=== PATIENT | female | born 1955 | race African-American/Black ===

== ENCOUNTER 2018-07-27 20:00 | Inpatient (IN) | payer MEDICARE ==
[~2018-07-27] VITALS: Ht 152.4 cm; Wt 103.4 kg
[2018-07-27 20:00] VITALS: BP 175/93
[2018-07-27 22:44] VITALS: BMI 44.6
--- NOTE | 2018-07-28 01:05 | NUR ---
PATIENT ADMITTED AT 2100 TO ROOM 1114A WITH DX OF BILATERAL WRISTS FRACTURES WITH REPAIR FOR PHYSICAL REHAB AND SERVICES OF DR ROSALES. AWAKE AND ALERT. RESPIRATIONS UNLABORED. BILATERAL LOWER ARMS WRAPPED IN SOFT CASTING WITH NOTED HARDWARE IN RIGHT ARM. SLIGHT EDEMA NOTED TO FINGERS IN RIGHT HAND BUT IS ABLE TO MOVE FINGERS ON COMMAND ON BOTH HANDS. SEE ADMISSION ASSESSMENT AND HISTORY. ASSISTED TO BATHROOM AND GAIT IS STEADY BUT MOBILITY SLIGHTLY LIMITED DUE TO NOT BEING ABLE TO USE HANDS. MEDICATED FOR PAIN EARLIER AND IS CURRENTLY RESTING. CONTINENT OF BOWEL AND BLADDER. CALL LIGHT IN REACH.
--- NOTE | 2018-07-28 01:54 | NUR ---
RESTING IN BED WITH EYES CLOSED AND RESPIRATIONS UNLABORED. NO DISTRESS NOTED.
[2018-07-28 06:02] LABS: BASOPHILS 0.2 % (0-2); EOSINOPHILS 0.8 % (0-7); HEMATOCRIT 36.7 % (36.0-48.0); HEMOGLOBIN 11.5 g/dL (12-16); IMMATURE GRANULOCYTES 0.2 % (0-5); LYMPHOCYTES 24.2 % (15-50); MCH 26.6 pg (26.0-34.0); MCHC 31.3 g/dL (31.0-37.0); MONOCYTES 7.6 % (2-11); PLATELET COUNT 193 10x3/uL (130-400); RBC 4.32 10x6/uL (4.00-5.40); RDW 14.2 % (11.5-14.5)
[2018-07-28 06:11] LABS: ANION GAP 10.9 mmol/L (8-16); CALCIUM 8.3 mg/dL (8.5-10.1); CARBON DIOXIDE 32.2 mmol/L (21.0-32.0); CREATININE - SERUM 0.9 mg/dL (0.6-1.3); POTASSIUM - SERUM 4.1 mmol/L (3.5-5.1)
[2018-07-28 07:29] VITALS: BP 187/82
--- NOTE | 2018-07-28 09:42 | NUR ---
IN THERAPY. BUE ARE IN IN CASTS FROM UPPER FOREARM TO KNUCKLES. DENIES INCREASED PAIN WHEN ARMS ARE AT REST. MAX ASST WITH ALL TASKS AND ADL'S REQUIRED. SHE IS NOT ABLE TO BEND ARM. EXTERNAL HARDWARE NOTED TO ANTONINA.
[2018-07-28 11:31] VITALS: Ht 152.4 cm; Wt 103.4 kg
--- NOTE | 2018-07-28 11:49 | NUR ---
SITTING IN CHAIR IN ROOM RESTING WITH EYES CLOSED. CALL LIGHT IN REACH
--- NOTE | 2018-07-28 17:49 | NUR ---
SITTING UP IN CHAIR IN ROOM VISITING WITH FRIENDS. DENIES NEEDS OR INCREASED PAIN TO BUE. CALL LIGHT IN REACH
[2018-07-28 19:04] VITALS: BP 182/90
--- NOTE | 2018-07-28 19:08 | NUR ---
AWAKE AND ALERT. SITTING IN CHAIR. ASSISTED TO BATHROOM. C/O NO BM X 3 DAYS. WILL TREAT WITH HS MEDICATIONS. DRESSINGS/HARDWARE INTACT TO BILATERAL WRISTS/LOWER ARMS. MILD EDEMA NOTED IN RIGHT HAND/FINGERS. ABLE TO MOVE FINGERS ON BOTH HANDS ON COMMAND AND SKIN IS WARM TO TOUCH. ASSISTED BACK TO CHAIR AFTER VOIDING. GAIT STEADY. CALL LIGHT IN REACH.
--- NOTE | 2018-07-29 01:54 | NUR ---
ASSISTED TO BATHROOM AND BACK TO BED. STILL NO BM. VOMITED EARLIER IN SHIFT 500CC. NO FURTHER VOMITING. RESTING WITH NO DISTRESS NOTED.
--- NOTE | 2018-07-29 05:26 | NUR ---
RESTING IN BED. RESPIRATIONS UNLABORED. NO CHANGES IN CONDITION THIS SHIFT. NO DISTRESS NOTED. CALL LIGHT IN REACH.
--- NOTE | 2018-07-29 07:15 | NUR ---
LAYING IN BED WITH BOTH JOLIE ELEVATED ON PILLOWS. EYES CLOSED. NO S/S DISTRESS. CALL LIGHT IN REACH
[2018-07-29 08:39] VITALS: BP 191/93
--- NOTE | 2018-07-29 10:43 | NUR ---
SITTING IN CHAIR IN ROOM. BOTH ARMS PROPED UP ON SEVERAL PILLOWS. DENIES NEEDS OR C/O. CALL LIGHT IN REACH
--- NOTE | 2018-07-29 14:11 | NUR ---
C/O INCREASED SOB. SHE DESATS TO HIGH 80'S WHILE TALKING. SHE CAN SPEAK 19 WORDS PER MINUTE ON 3LNC. WHEN SHE STOPS TALKING HER SATS COME BACK UP. RESPIRATORY NOTIFIED AND THEY GAVE ALBUTERAL MDI X2 PUFFS AND PUT HER ON HER OWN TRILOGY CPAP MACHINE. SHE DENIED CONTINUED SOB AND HER SATS INCREASED TO 99%. CALL LIGHT IN REACH. SHE IS RESTING QUIETLY IN BED WITH CPAP ON AND IS READING A BOOK.
[2018-07-29 17:52] LABS: PROTEIN - URINE 53.5 mg/dL (0.0-11.9)
[2018-07-29 17:54] LABS: CREATININE - URINE 292.1 mg/dL (30-125); PRO/CRE RATIO URINE 0.2 mg/g
[2018-07-29 18:07] LABS: APPEARANCE CLEAR (CLEAR); BILIRUBIN 1+ (NEGATIVE); COLOR YELLOW (YELLOW); GLUCOSE 50 mg/dL (NEGATIVE); KETONE SMALL mg/dL (NEGATIVE); NITRITE NEGATIVE (NEGATIVE); PROTEIN 1+ mg/dL (NEGATIVE); UROBILINOGEN NORMAL (NORMAL)
[2018-07-29 18:08] LABS: BACTERIA MODERATE /hpf (NONE SEEN); HYALINE CAST 0-5 /lpf (NONE SEEN); RED CELLS - URINE 0-5 /hpf (0-5); WHITE CELLS - URINE 0-5 /hpf (0-5)
[2018-07-29 18:54] VITALS: BP 152/86
--- NOTE | 2018-07-29 19:15 | NUR ---
PT SITTING IN WC IN HER ROOM. ALERT AND ORIENTED X 3. DENIES ACUTE DISCOMFORT AT THIS TIME. PT ASSISTED TO THE BATHROOM WITH MIN ASSIST FOR TRANSFERS, MOD ASSIST WITH TOILETING. DRESSINGS TO YVONNE WRISTS ARE CDI. EXTERNAL FIXATORS TO RIGHT ARM ARE INTACT. RIGHT ARM IS RESERVED FOR HISTORY OF A MASTECTOMY. PT IS VERY FRIENDLY AND COOPERATIVE. SR'S ARE UP X 3 WHILE IN BED. CALL LIGHT AND BEDSIDE TABLE ARE WITHIN EASY REACH.
--- NOTE | 2018-07-29 21:47 | NUR ---
PT IS RESTING IN BED WITH EYES OPEN. NO NEEDS VOICED.
--- NOTE | 2018-07-30 01:28 | NUR ---
PT ASSISTED TO THE BATHROOM WITH MOD ASSIST.
--- NOTE | 2018-07-30 02:25 | NUR ---
I have reviewed this patient and I concur with the Shift Assessment completed by the Licensed Practical Nurse today this shift.
--- NOTE | 2018-07-30 06:23 | NUR ---
PT RESTING IN BED WITH EYES OPEN. ASSISTED TO THE BATHROOM WITH MOD ASSIST. NO FURTHER NEEDS VOICED AT THIS TIME.
[2018-07-30 06:38] LABS: BASOPHILS 0.2 % (0-2); EOSINOPHILS 1.4 % (0-7); HEMATOCRIT 35.3 % (36.0-48.0); HEMOGLOBIN 10.9 g/dL (12-16); IMMATURE GRANULOCYTES 0.2 % (0-5); LYMPHOCYTES 37.7 % (15-50); MCH 26.3 pg (26.0-34.0); MCHC 30.9 g/dL (31.0-37.0); MCV 85.1 fL (80.0-100.0); MEAN PLATELET VOLUME 9.4 fL (7.4-10.4); NEUTROPHILS 53.5 % (40-80); PLATELET COUNT 183 10x3/uL (130-400); RBC 4.15 10x6/uL (4.00-5.40); RDW 14.3 % (11.5-14.5)
[2018-07-30 07:06] LABS: CALC OSMOLALITY 278 mosm/kg (275-300); CARBON DIOXIDE 31.9 mmol/L (21.0-32.0); CHLORIDE - SERUM 99 mmol/L (98-107); CREATININE - SERUM 0.8 mg/dL (0.6-1.3); GLUCOSE 251 mg/dL (74-106); POTASSIUM - SERUM 4.3 mmol/L (3.5-5.1); SODIUM 135 mmol/L (136-145); THYROID STIMULATING HORMONE 1.33 uIU/mL (0.36-3.74); UREA NITROGEN 16 mg/dL (7-18); eGFR NON AFRICAN AMERICAN 76 mL/min (90-120)
[2018-07-30 08:01] VITALS: BP 162/73
--- NOTE | 2018-07-30 12:15 | NUR ---
SITTING IN WC IN ROOM EATING LUNCH. APPETITE POOR. CALL LIGHT IN REACH
--- NOTE | 2018-07-30 15:27 | NUR ---
STILL HAVING SOME N/V WITH BROWN COLORED EMESIS. APPETITE IS POOR. BUE STILL ELEVATED ON PILLOWS. CALL LIGHT IN REACH
--- NOTE | 2018-07-30 17:44 | NUR ---
N/V IMPROVED AFTER ZOFRAN. DENIES NEEDS. ATE A LITTLE BIT OF SUPPER. CALL LIGHT IN REACH
[2018-07-30 19:00] VITALS: BP 222/98
--- NOTE | 2018-07-30 19:11 | NUR ---
AWAKE, DOZING AT INTERVALS. STATES SHE FEELS A LITTLE BETTER NOW. RESPIRATIONS UNLABORED. NO ACUTE DISTRESS NOTED. BP ELEVATED AFTER VOMITING. WILL RECHECK WITH HS MEDICATIONS. NO C/O PAIN. CALL LIGHT IN REACH.
[2018-07-31 00:06] VITALS: BP 167/87
--- NOTE | 2018-07-31 00:07 | NUR ---
RESTING QUIETLY. BLOOD PRESSURE NOW 167/87. NO DISTRESS NOTED.
--- NOTE | 2018-07-31 02:29 | NUR ---
SLEEPING WITH RESPIRATIONS UNLABORED. NO DISTRESS NOTED. CALL LIGHT IN REACH,
--- NOTE | 2018-07-31 05:13 | NUR ---
QUIET HOURS. NO CHANGES IN CONDITION THIS SHIFT. NO VOMITING THIS SHIFT. RESTING IN BED WITH NO DISTRESS NOTED.
[2018-07-31 07:34] VITALS: BP 183/95
--- NOTE | 2018-07-31 08:00 | NUR ---
SHIFT ASSMT COMPLETED.DENIES NEEDS.BREAKFAST GIVEN.ASSISTED WITH MEALS.CL IN REACH.
--- NOTE | 2018-07-31 12:20 | NUR ---
PATIENT ADMITTED TO REHAB FROM AN OUTSIDE FACILITY. DISCHARGE PLANS ARE FOR HER TO RETURN HOME. WILL CONTINUE TO FOLLOW WITH PATIENT.
--- NOTE | 2018-07-31 13:04 | NUR ---
Nutrition Follow Up: Pt was in therapy at the time of RD visit. Interview deferred at this time. Diet: ADA PO intake: 51% meal avg BM: 07/29/18 Labs reviewed - Glucose elevated Meds noted Rec continue ADA diet. Will continue to honor food preferences. RD following.
[2018-07-31 19:00] VITALS: BP 165/78
--- NOTE | 2018-07-31 19:58 | NUR ---
AWAKE AND ALERT. RESTING IN BED. DRESSINGS AND CAST INTACT TO BILATERAL ARMS. C/O INDIGESTION. TREATED WITH MYLANTA PRN. NO DISTRESS NOTED. CALL LIGHT IN REACH.
--- NOTE | 2018-08-01 03:29 | NUR ---
RESTING IN BED WITH RESPIRATIONS UNLABORED. NO DISTRESS NOTED. CALL LIGHT IN REACH.
--- NOTE | 2018-08-01 05:11 | NUR ---
QUIET HOURS. ASSISTED UP TO BATHROOM AND BACK TO BED. NO DISTRESS NOTED. NO CHANGE IN CONDITION THIS SHIFT.
--- NOTE | 2018-08-01 08:00 | NUR ---
SHIFT ASSMT COMPLETED.BREAKFAST GIVEN.INSTANT POTATO PROCESSOR TO FEED.CL IN REACH.
[2018-08-01 08:35] LABS: BASOPHILS 0.4 % (0-2); EOSINOPHILS 1.7 % (0-7); HEMATOCRIT 37.9 % (36.0-48.0); HEMOGLOBIN 11.9 g/dL (12-16); MCH 26.5 pg (26.0-34.0); MCHC 31.4 g/dL (31.0-37.0); MCV 84.4 fL (80.0-100.0); MEAN PLATELET VOLUME 9.2 fL (7.4-10.4); MONOCYTES 7.3 % (2-11); NEUTROPHILS 59.6 % (40-80); RBC 4.49 10x6/uL (4.00-5.40); RDW 13.8 % (11.5-14.5); WBC 4.8 10x3/uL (4.8-10.8)
[2018-08-01 08:36] VITALS: BP 188/82
[2018-08-01 08:37] LABS: PLATELET COUNT 141 10x3/uL (130-400)
[2018-08-01 08:47] LABS: ANION GAP 9.6 mmol/L (8-16); CALCIUM 9.3 mg/dL (8.5-10.1); CREATININE - SERUM 0.9 mg/dL (0.6-1.3); POTASSIUM - SERUM 4.6 mmol/L (3.5-5.1)
--- NOTE | 2018-08-01 12:00 | NUR ---
SITTING UP IN WC.
--- NOTE | 2018-08-01 13:52 | NUR ---
CARE TEAM MEETING: PATIENT IS PROGRESSING IN THERAPY. TENATIVE DISCHARGE DATE IS 08/08/18. WILL CONTINUE TO FOLLOW WITH PATIENT.
[2018-08-01 14:20] VITALS: BP 174/96
--- NOTE | 2018-08-01 16:00 | NUR ---
SITTING UP IN WC.
[2018-08-01 19:00] VITALS: BP 168/74
--- NOTE | 2018-08-01 23:48 | NUR ---
PT UP TO TOILET, BUE CASTED, HELP WITH CLOTHING AND EATING NOTED, DRSG CHANGE COMPLETED PER ORDERS, FLUIDS AND CALL LIGHT WITHIN REACH
[2018-08-02 00:25] VITALS: BP 178/86
--- NOTE | 2018-08-02 04:50 | NUR ---
PT IN BED LOW POSITION, EYES CLOSED, AROUSES EASILY TO VOICE, FLUIDS AND CALL LIGHT WITHIN REACH, NO NEEDS NOTED
[2018-08-02 06:25] VITALS: BP 178/86
--- NOTE | 2018-08-02 08:15 | NUR ---
PT RESTING IN BED WITH EYES OPEN CALL LIGHT IN REACH NO PROBLEMS WILL MONITER
[2018-08-02 11:24] VITALS: BP 153/82
[2018-08-02 12:11] LABS: CAT - DOPAMINE 34 pg/mL (0-48); CAT - EPINEPHRINE <15 pg/mL (0-62); CAT - NOREPINEPHRINE 277 pg/mL (0-874)
[2018-08-02 16:08] LABS: RENIN ACTIVITY - PLASMA 1.868 ng/mL/hr (0.167-5.380)
--- NOTE | 2018-08-02 18:42 | NUR ---
PT UP IN WHEELCHAIR IN ROOM CALL LIGHT IN REACH WILL MONITER
[2018-08-02 18:58] VITALS: BP 137/75
[2018-08-02 19:08] LABS: META PL - METANEPHRINE 13 pg/mL (0-62); META PL - NORMETANEPHRINE 48 pg/mL (0-145)
--- NOTE | 2018-08-02 19:36 | NUR ---
PATIENT RECEIVED SITTING UP IN WHEELCHAIR AT BEDSIDE. PATIENT ASSESSMENT DONE. NO SIGNS OF PAIN OR DISTRESS. CALL LIGHT WITHIN REACH. WILL CONTINUE TO MONITOR.
[2018-08-02 19:48] VITALS: BP 137/75
--- NOTE | 2018-08-03 00:28 | NUR ---
I have reviewed this patient and I concur with the Shift Assessment completed by the Licensed Practical Nurse today this shift.
--- NOTE | 2018-08-03 00:47 | NUR ---
PATIENT C/O PAIN TO RIGHT WRIST. PATIENT GIVEN PAIN MEDICATION FOR PAIN LEVEL 8. PATIENT MADE COMFORTABLE. CALL LIGHT WITHIN REACH. BED LOW. WILL CONTINUE TO MONITOR.
[2018-08-03 00:58] VITALS: BP 152/83
[2018-08-03 04:09] LABS: ALDOSTERONE 2.2 ng/dL (0.0-30.0)
[2018-08-03 06:24] VITALS: BP 151/80
[2018-08-03 11:53] VITALS: BP 153/91
--- NOTE | 2018-08-03 18:15 | NUR ---
PT RESTING IN BED WITH EYES OPEN CALL LIGHT IN REACH NO PROBLEMS WILL MONITER
--- NOTE | 2018-08-03 19:08 | NUR ---
PATIENT IS RESTING IN HER BED. SHE HAS FAMILY VISITING WITH HER AND SHE DENIES ANY NEEDS. BED IS DOWN LOW WITH SIDE RAILS UP X2, CALL LIGHT IN REACH.
[2018-08-03 23:56] VITALS: BP 153/77
--- NOTE | 2018-08-04 00:04 | NUR ---
PATIENT IS SLEEPING. BED IS DOWN LOW WITH SIDE RAILS UP X2 AND CALL LIGHT IN REACH.
--- NOTE | 2018-08-04 04:05 | NUR ---
PATIENT IS SLEEPING. BED IS DOWN LOW WITH SIDE RAILS UP X2. CALL LIGHT IS IN REACH.
[2018-08-04 06:29] VITALS: BP 156/72
[2018-08-04 08:00] VITALS: BP 167/80
--- NOTE | 2018-08-04 08:00 | NUR ---
PATIENT IS ALERT/ORIENT. CALL LIGHT WITHIN REACH. VOICES NO NEEDS AT THIS TIME. WILL CONTINUE WITH PLAN OF CARE
--- NOTE | 2018-08-04 08:40 | NUR ---
PRN MYLANTA GIVEN FOR UPSET STOMACHE. PATIENT REQUEST I HOLD OFF ON HER AM MEDICATIONS FOR NOW
--- NOTE | 2018-08-04 11:10 | NUR ---
PATIENT HELPED TO BATHROOM. WALKS WITH STANDBY ASST. PATIENT NEEDS HELP WITH N[facility] AND PULLING UP PANTS DUE TO BILATER WRIST FRACTURES
--- NOTE | 2018-08-04 14:09 | NUR ---
UP IN WC.DENIES NEEDS.
--- NOTE | 2018-08-04 14:18 | NUR ---
PATIENT HELPED WITH SHOWER BY THIS NURSE. PATIENT UNABLE TO WASH OR DRY SELF DUE TO BILATERAL WRIST FRACTURES. TOTAL ASST WITH SHOWER. LINENS ON BED CHANGED
--- NOTE | 2018-08-04 18:24 | NUR ---
PATIENT SITTING UP ON THE SIDE OF THE BED TO EAT SUPPER. ABLE TO FEED SELF WITH SPECIAL UTINSILS
[2018-08-04 19:42] VITALS: BP 144/97
--- NOTE | 2018-08-04 19:43 | NUR ---
AWAKE AND ALERT. SITTING ON SIDE OF BED. RESPIRATIONS UNLABORED. DRESSINGS/CAST INTACT TO BILATERAL ARMS/WRISTS. MEDICATED FOR C/O INDIGESTION. CALL LIGHT IN REACH.
--- NOTE | 2018-08-05 01:42 | NUR ---
CONTINUES RESTING IN BED WITH NO DISTRESS NOTED. CALL LIGHT IN REACH.
--- NOTE | 2018-08-05 05:00 | NUR ---
QUIET HOURS. RESTING IN BED WITH NO DISTRESS NOTED. CALL LIGHT IN REACH.
--- NOTE | 2018-08-05 08:45 | NUR ---
ADMININSTERED MORNING MEDS WHOLE WITHOUT DIFFICULTY. DENIES ANY NEEDS OR PAIN. RR EVEN AND UNLABORED. A&O X4. CALL LIGHT WITHIN REACH, FALL PRECAUTIONS IN PLACE
[2018-08-05 09:00] VITALS: BP 144/70
--- NOTE | 2018-08-05 13:04 | NUR ---
ASSISTED TO RESTROOM WITH STAND BY ASSIST.
--- NOTE | 2018-08-05 15:26 | NUR ---
SLEEPING IN BED AT THIS TIME. WILL CONTINUE TO MONITOR. CALL LIGHT WITHIN REACH.
--- NOTE | 2018-08-05 19:22 | NUR ---
AWAKE AND ALERT. RESTING IN BED WITH RESPIRATIONS UNLABORED AND NO DISTRESS NOTED. DRESSINGS INTACT TO BILATERAL WRIST AREAS WITH PINS INTACT TO LOWER RIGHT ARM. CALL LIGHT IN REACH.
[2018-08-05 20:00] VITALS: BP 134/67
--- NOTE | 2018-08-06 02:40 | NUR ---
CONTINUES RESTING IN BED WITH RESPIRATIONS UNLABORED. NO DISTRESS NOTED. CALL LIGHT IN REACH.
--- NOTE | 2018-08-06 06:01 | NUR ---
QUIET HOURS. NO CHANGES IN CONDITION THIS SHIFT. NO DISTRESS NOTED.
[2018-08-06 07:06] LABS: BASOPHILS 0.2 % (0-2); EOSINOPHILS 1.4 % (0-7); HEMOGLOBIN 11.9 g/dL (12-16); IMMATURE GRANULOCYTES 0.2 % (0-5); LYMPHOCYTES 38.6 % (15-50); MCH 26.9 pg (26.0-34.0); MCHC 32.2 g/dL (31.0-37.0); MCV 83.5 fL (80.0-100.0); MEAN PLATELET VOLUME 9.1 fL (7.4-10.4); MONOCYTES 6.8 % (2-11); NEUTROPHILS 52.8 % (40-80); PLATELET COUNT 160 10x3/uL (130-400); RBC 4.43 10x6/uL (4.00-5.40); RDW 13.7 % (11.5-14.5); WBC 5.2 10x3/uL (4.8-10.8)
[2018-08-06 07:13] LABS: ANION GAP 8.9 mmol/L (8-16); CALCIUM 9.8 mg/dL (8.5-10.1); CARBON DIOXIDE 32.4 mmol/L (21.0-32.0); CREATININE - SERUM 1.2 mg/dL (0.6-1.3); POTASSIUM - SERUM 4.3 mmol/L (3.5-5.1)
[2018-08-06 07:55] VITALS: BP 141/80
--- NOTE | 2018-08-06 09:57 | NUR ---
PATIENT COMPLAINED OF PAIN TO WRIST THIS MORNING. MEDICATED WITH PRN NORCO 5 WITH GOOD RESULTS. ATE 75% OF BREAKFAST. HAD LARGE EMESIS AFTER BREAKFAST. GI CONSULT OBTAINED. UP FOR THERAPY AT THIS TIME. WILL CONTINUE TO MONITOR.
--- NOTE | 2018-08-06 14:14 | NUR ---
Nutrition Follow Up: Pt was asleep at the time of RD visit. Interview deferred at this time. Noted per chart pt with large emesis this am. Diet: ADA PO Intake: 68% - po intake is improving BM: 08/04/18 Labs reviewed - Glucose elevated Meds noted Rec continue current diet. RD following.
[2018-08-06 19:00] VITALS: BP 137/71
--- NOTE | 2018-08-06 19:41 | NUR ---
PT IN BED LOW POSITION, EYES CLOSED, AROUSES EASILY TO VOICE, NO NEEDS NOTED, FLUIDS AND CALL LIGHT WITHIN REACH
--- NOTE | 2018-08-06 23:44 | NUR ---
PT UP TO TOILET, BACK TO BED, EYES OPEN, NO OTHER NEEDS VOICED OR NOTED, FLUIDS AND CALL LIGHT WITHIN REACH
--- NOTE | 2018-08-07 02:35 | NUR ---
PT C/O 9 OF 10 PAIN RIGHT HAND (THUMB), THIS IS ARM WITH EXTERNAL FIXATOR
[2018-08-07 08:16] VITALS: BP 172/76
--- NOTE | 2018-08-07 12:25 | NUR ---
PARTICIPATED IN THERAPY THIS AM.
--- NOTE | 2018-08-07 13:02 | NUR ---
FAMILY UNABLE TO ASSIT PATIENT SO SHE REQUEST A REFERRAL TO BE FAXED TO [facility]. REFERAL HAS BEEN FAXED FOR POSSIBLE ADMISSION ON 08/08/18. WILL CONTINUE TO FOLLOW WITH PATIENT.
[2018-08-07 19:00] VITALS: BP 123/102
--- NOTE | 2018-08-07 19:05 | NUR ---
NO CHANGE IN ASSESSMENT. CL IN REACH. NO C/O PAIN AT THIS TIME. ZOFRAN GIVEN FOR N/V.
--- NOTE | 2018-08-07 23:02 | NUR ---
PT IN BED LOW POSITION, EYES CLOSED, AROUSES EASILY TO VOICE, NO NEEDS NOTED, FLUIDS AND CALL LIGHT WITHIN REACH
[2018-08-08 08:21] VITALS: BP 78/43
[2018-08-08 08:23] VITALS: BP 71/45; BP 89/44
[2018-08-08 08:24] LABS: BASOPHILS 0.4 % (0-2); EOSINOPHILS 1.5 % (0-7); HEMATOCRIT 35.2 % (36.0-48.0); HEMOGLOBIN 11.5 g/dL (12-16); IMMATURE GRANULOCYTES 0.2 % (0-5); MCH 27.1 pg (26.0-34.0); MCHC 32.7 g/dL (31.0-37.0); MEAN PLATELET VOLUME 8.9 fL (7.4-10.4); MONOCYTES 4.5 % (2-11); NEUTROPHILS 54.4 % (40-80); PLATELET COUNT 180 10x3/uL (130-400); RBC 4.24 10x6/uL (4.00-5.40); RDW 13.7 % (11.5-14.5); WBC 5.5 10x3/uL (4.8-10.8)
--- NOTE | 2018-08-08 08:24 | NUR ---
HYPOTENSIVE. RECHECKED BP X3. NOTIFIED DR ROSALES. HE WILL WRITE ORDERS.
[2018-08-08 08:38] LABS: ANION GAP 10.6 mmol/L (8-16); CALCIUM 9.6 mg/dL (8.5-10.1); CARBON DIOXIDE 31.8 mmol/L (21.0-32.0); CREATININE - SERUM 1.9 mg/dL (0.6-1.3); POTASSIUM - SERUM 4.4 mmol/L (3.5-5.1)
--- NOTE | 2018-08-08 09:52 | NUR ---
RECHECKED BP/ IS NOW 135/71 HR 80.
[2018-08-08 09:57] VITALS: BP 131/71
--- NOTE | 2018-08-08 10:34 | NUR ---
SHOWER PER OT TODAY. DC CANCELELD FOR TODAY PER DR ROSALES.
--- NOTE | 2018-08-08 12:41 | NUR ---
PATIENT FED SELF WITH SPECIAL UTENSILS.
--- NOTE | 2018-08-08 16:33 | NUR ---
NO CHANGE IN ASSESSMENT. CL IN REACH. NO C/O PAIN AT THIS TIME.
[2018-08-08 18:17] LABS: APPEARANCE CLEAR (CLEAR); BILIRUBIN NEGATIVE (NEGATIVE); COLOR YELLOW (YELLOW); GLUCOSE NEGATIVE (NEGATIVE); KETONE NEGATIVE (NEGATIVE); NITRITE NEGATIVE (NEGATIVE); PROTEIN TRACE mg/dL (NEGATIVE); SPECIFIC GRAVITY 1.015 (1.005-1.020); UROBILINOGEN NORMAL (NORMAL)
[2018-08-08 18:18] LABS: BACTERIA MODERATE /hpf (NONE SEEN); EPITHELIAL CELLS 0-5 /hpf (0-5); RED CELLS - URINE OCC /hpf (0-5); WHITE CELLS - URINE 0-5 /hpf (0-5)
[2018-08-08 19:00] VITALS: BP 140/55
--- NOTE | 2018-08-08 19:45 | NUR ---
RESTING IN BED WITH EYES CLOSED AND RESPIRATIONS UNLABORED. CASTS/DRESSINGS INTACT TO BILATERAL WRISTS. NO ACUTE DISTRESS NOTED. CALL LIGHT IN REACH.
--- NOTE | 2018-08-09 01:41 | NUR ---
RESTING IN BED WITH EYES CLOSED AND RESPIRATIONS UNLABORED. NO DISTRESS NOTED. CALL LIGHT IN REACH.
--- NOTE | 2018-08-09 05:14 | NUR ---
RESTING QUIETLY. RESPIRATIONS UNLABORED. NO ACUTE CHANGES IN CONDITION THIS SHIFT. NO DISTRESS NOTED.
[2018-08-09 07:50] LABS: ALBUMIN 3.2 g/dL (3.4-5.0); BILIRUBIN - TOTAL 0.45 mg/dL (0.2-1.3); CALCIUM 9.6 mg/dL (8.5-10.1); CARBON DIOXIDE 29.3 mmol/L (21.0-32.0); POTASSIUM - SERUM 4.3 mmol/L (3.5-5.1); PROTEIN - SERUM 6.7 g/dL (6.4-8.2)
[2018-08-09 07:52] LABS: CREATININE - SERUM 1.4 mg/dL (0.6-1.3)
--- NOTE | 2018-08-09 08:00 | NUR ---
PT UP ON SIDE OF BED EATING BREAKFAST TOLERATED WELL CALL LIGHT IN REACH WILL MONITER
[2018-08-09 08:12] VITALS: BP 150/74
[2018-08-09] MEDS ORDERED: ZANAFLEX4 MG PO (08:19)
[2018-08-09] MEDS ORDERED: LIPITOR10 MG PO (08:19)
[2018-08-09] MEDS ORDERED: FERROUS SULFAT325 MG PO (08:19)
[2018-08-09] MEDS ORDERED: LISINOPRIL10 MG PO (08:19)
[2018-08-09] MEDS ORDERED: NORVASC5 MG PO (08:19)
[2018-08-09] MEDS ORDERED: BENADRYL25 MG PO (08:19)
[2018-08-09] MEDS ORDERED: METOPROLOL TART50 MG PO (08:20)
[2018-08-09] MEDS ORDERED: CHLORTHALIDONE25 MG PO (08:20)
[2018-08-09] MEDS ORDERED: HYDROCODON-ACE1 EAC7 PO (08:20)
[2018-08-09] MEDS ORDERED: ACETAMINOPHEN500 M1 PO (08:20)
[2018-08-09] MEDS ORDERED: CATAPRES0.1 MG PO (08:20)
[2018-08-09] MEDS ORDERED: GLUCOPHAGE500 MG PO (08:21)
[2018-08-09] MEDS ORDERED: Vitamin D PO (08:21)
[2018-08-09] MEDS ORDERED: PROTONIX40 MG PO (08:21)
[2018-08-09] MEDS ORDERED: GLUCOTROL 5 MG T5 MG PO (08:21)
[2018-08-09] MEDS ORDERED: ZOFRAN4 MG PO (08:21)
[2018-08-09] MEDS ORDERED: PATIENT'S OWN MEDICA PO (08:21)
--- NOTE | 2018-08-09 08:24 | RHP ---
PATIENT: LEE CABRALES MEDICAL RECORD: [id number] ACCOUNT: [id number] LOCATION:[facility] D.1110 : 53 ADMISSION DATE: 07/27/18 REHABILITATION HISTORY AND PHYSICAL EXAMINATION POST ADMISSION PHYSICIAN EXAMINATION ADMITTING DIAGNOSES: Bilateral Colles fracture with dorsal displacement of left distal radius and dorsal displacement of intra-articular extension of the right distal radius. HISTORY OF PRESENT ILLNESS: The patient is admitted to inpatient rehab secondary to bilateral Colles fracture with dorsal displacement of left distal radius and dorsal displacement of intra-articular extension of the right distal radius. She is a 62-year-old female patient who was at home, washing a car, and presented to the ED with bilateral wrist pain. She apparently fell. She was found to have bilateral Colles fracture with dorsal displacement of the left distal radius and dorsal displacement of intra-articular extension of the right distal radius. Taken to OR by Dr. Maria over in [place] on July 26 and underwent closed reduction of left wrist and long arm splint, and external fixator for the right wrist and short arm splinting. She has got chronic lymphedema of her upper extremity secondary to history of breast cancer and having mastectomy. She is postop day #1. She is nonweightbearing to her right wrist with external fixator. This will require pin care and weightbearing as tolerated to the left wrist with cast intact. She is currently having pain control problems, status post surgery. We are monitoring her high blood pressure and monitoring her diabetes. Pin care is also important thing to be watched during her stay. She is noted to have debility, weakness, and impaired mobility. She is at high risk for falls and self-care deficits. These are all barriers to discharge home. She lives at home with her family and was completely independent with ADLs and mobility. Currently, min assist to total assist for ADLs, mod assist to total assist for mobility. She plans to return home at her prior level of function or better after her stay. Comorbidities include a closed and displaced comminuted fracture of the right radius, closed and displaced comminuted fracture of the right radius, pain, obesity, diabetes, hypertension, lymphedema, history of breast cancer, debility, weakness, self-care deficits, and impaired mobility. PAST MEDICAL HISTORY: Significant for asthma, breast cancer, diabetes, and hypertension. PAST SURGICAL HISTORY: Includes hysterectomy, mastectomy and bilateral ovaries have been removed. ALLERGIES: No known drug allergies. CURRENT MEDICATIONS: Include B12 daily. She is on metformin 1000 mg b.i.d. with meals, lisinopril 5 mg daily, and Femara 2.5 mg daily. She is on insulin Lantus long-acting 10 units subcutaneously daily. She is on glipizide 5 mg b.i.d., zolpidem 5 mg at bedtime, Zofran 4 mg q. 4 hours p.r.n., and [place] 7.5 one tab q. 4 hours p.r.n. She is on Robitussin DM liquid as needed. She is on Benadryl 25 mg q. 6 hours p.r.n. itching. She is on Dulcolax 10 mg b.i.d. p.r.n. constipation. She is on Mylanta p.r.n. heartburn. She is on 50,000 units of vitamin D daily, Lipitor 10 mg at bedtime, Ventolin two puffs q. 6 hours p.r.n., Zanaflex 4 mg q. 8 hours p.r.n., and ferrous sulfate 325 mg t.i.d. HISTORY AND PHYSICAL [id number] LEE CABRALES HABITS: No alcohol or tobacco use. FAMILY HISTORY: Noncontributory. SOCIAL HISTORY: The patient hopes to return back home and get back to her prior level of function. REVIEW OF SYSTEMS: GENERAL: She does complain of some weakness and fatigue. HEENT: She denies cold, cough, or congestion. CARDIOVASCULAR: She denies chest pain. PHYSICAL EXAMINATION: VITAL SIGNS: Stable. Afebrile. GENERAL: A somewhat obese female, in no distress upon exam. CHEST: Normocephalic and atraumatic. Mucosa moist. NECK: Supple. No lymphadenopathy. LUNGS: Clear at this time with no wheezing or rales. HEART: Regular rate and rhythm. No murmurs, rubs, or gallops. ABDOMEN: Soft, benign, and obese. EXTREMITIES: She does have bilateral surgical changes to both the wrists. NEUROLOGIC: She does have noted weakness. LABORATORY DATA: Her white count is 5.0, H&H of 11 and 36, and her platelet count is noted to be 193. Her sodium is 139, potassium 4.1, BUN and creatinine of 14 and 0.9, and blood sugar is noted to be 265. It should be noted her systolic blood pressure has also been high. ASSESSMENT: This 62-year-old female patient admitted to rehab with working diagnosis of ortho complications secondary to bilateral wrist fractures. The patient has potential to make improvement. We will institute the following multidisciplinary therapies including, but not limited to physical, occupational, respiratory, speech, nutritional services, prosthetics, and orthotics. Given her complex medical condition and risk for more complications, rehabilitation services cannot be provided at a low level of care such a skilled nurse facility. PLAN: 1. Admit to [facility] for intensive inpatient therapy to include the following disciplines: A. Physical therapy to improve gait, all transfer skills, and bed mobility to modified independent level. B. Occupational therapy to improve activities of daily living to a modified independent level. C. Case management to assist with discharge planning and placement options. D. Nutrition to assist with nutritional needs. E. Rehabilitation nursing to assist in monitoring the patient's underlying medical conditions and to assist with any type of bowel or bladder management. 2. The patient's current medications and medical care will be continued. 3. I am going to go ahead and bump her up a little bit on lisinopril to get her blood pressure down a little bit. 4. We will go ahead and add Protonix for GI prophylaxis as needed. I will see how much Mylanta she has been using. 5. I am going to follow her up in the a.m. HISTORY AND PHYSICAL [id number] LEE CABRALES TRANSINT:[id number] Voice Confirmation ID: [id number] DOCUMENT ID: [id number] [facility] notes whether there has been none or any medical/functional change since admission: - No change since preadmission screen. [facility] attests patient continues to be appropriate for IRF: - Continues to be appropriate. SANCHEZ ROSALES MD at 0824 CC: [id number] DICTATION DATE: 07/28/18 0954 VOCATIONAL EDUCATION TEACHER: 07/28/18 1130 ADM IN [facility] [address] [place] [address]
--- NOTE | 2018-08-09 08:30 | NUR ---
UP OOB TO BATHROOM.PLAN TO DC TO [facility] TODAY.
--- NOTE | 2018-08-09 09:05 | NUR ---
PATIENT DISCHARGING TO [facility] VIA FACILITY [facility]AN. NO HOME HEALTH OR DME NEEDED AT THIS TIME. DR. KIRAN 08/22/18 @ 10:30, DR. RICHTER 08/23/18 @ 2:20. PATIENT CHOICE FORM AND IMFM FORMS SIGNED, COPY GIVEN TO PATIENT AND FILED IN CHART. DISCHARGE INSTRUCTIONS WITH FIM DATA REVIEWED WITH PATIENT, FAXED TO SNF AND PCP.
--- NOTE | 2018-08-09 11:45 | NUR ---
PT DISCHARGED TO [facility] VIA THERE TRANSPORTATION REPORT CALLED TO [facility] DISCHARGE SUMMARY AND MEDS SENT WITH TRANSPORTER NO QUESTIONS OR CONCERNS ON DISCHARG PT TOLERATED WELL
== END 2018-08-09 15:05 | DRG 561 ==
LOC: D.REHAB 20:00
PROVIDERS: Internal Medicine Gastroenterology; Internal Medicine Nephrology; ADMIT Emergency Medicine; ATTEND Emergency Medicine
DX: S52.532D Colles' fracture of left radius, subsequent encounter for closed fracture with routine healing (principal); S52.531D Colles' fracture of right radius, subsequent encounter for closed fracture with routine healing; E66.9 Obesity, unspecified; E11.9 Type 2 diabetes mellitus without complications; I10 Essential (primary) hypertension; I89.0 Lymphedema, not elsewhere classified; R53.81 Other malaise; R53.1 Weakness; W19.XXXD Unspecified fall, subsequent encounter; K59.00 Constipation, unspecified; R11.2 Nausea with vomiting, unspecified; E11.65 Type 2 diabetes mellitus with hyperglycemia